=== PATIENT | female | born 1960 | race Caucasian/White ===

== ENCOUNTER → 2017-02-25 | Outpatient (CLI) | payer MEDICAID ==
[2017-02-25 09:15] LABS: Cholesterol 195 mg/dL (<200); HDL Cholesterol 79 mg/dL (40-60); Triglycerides 69 mg/dL (<150)
== END | disposition home or self-care (01) ==
LOC: LABWHC1 08:13
PROVIDERS: ATTEND Family Medicine
DX: E78.5 Hyperlipidemia, unspecified (principal)
CPT/HCPCS: 36415; 80061

== ENCOUNTER → 2018-01-19 | Outpatient (CLI) | payer MEDICAID ==
[2018-01-19 08:07] LABS: Cholesterol 246 mg/dL (<200); Glucose 95 mg/dL (74-99); HDL Cholesterol 71 mg/dL (40-60); LDL Cholesterol,Calculated 159 mg/dL (0-99); Triglycerides 78 mg/dL (<150)
== END | disposition home or self-care (01) ==
LOC: LABWHC1 06:45
PROVIDERS: ATTEND Family Medicine
DX: Z00.00 Encounter for general adult medical examination without abnormal findings (principal)
CPT/HCPCS: 36415; 80061; 82947

== ENCOUNTER → 2018-01-30 | Outpatient (CLI) | payer MEDICAID ==
--- NOTE | 2018-02-01 13:04 | MM ---
Reason for exam: screening (asymptomatic). Last mammogram was performed 1 year and 6 months ago. History: Patient is postmenopausal. Physical Findings: A clinical breast exam by your physician is recommended on an annual basis and results should be correlated with mammographic findings. MG 3D Screening Mammo W/Cad Bilateral CC and MLO view(s) were taken. Prior study comparison: August 02, 2016, bilateral MG 3d screening mammo w/cad. June 23, 2015, bilateral MG screening mammo w CAD. There are scattered fibroglandular densities. No significant changes when compared with prior studies. ASSESSMENT: Negative, BI-RAD 1 RECOMMENDATION: Routine screening mammogram of both breasts in 1 year.
== END | disposition home or self-care (01) ==
LOC: RADMAMWWP 14:06
PROVIDERS: ATTEND Family Medicine
DX: Z12.31 Encounter for screening mammogram for malignant neoplasm of breast (principal)
CPT/HCPCS: 77063; 77067

== ENCOUNTER → 2019-06-12 | Outpatient (CLI) | payer MEDICAID ==
--- NOTE | 2019-06-13 12:11 | MM ---
Reason for exam: screening (asymptomatic). Last mammogram was performed 1 year and 4 months ago. History: Patient is postmenopausal. Physical Findings: A clinical breast exam by your physician is recommended on an annual basis and results should be correlated with mammographic findings. MG 3D Screening Mammo W/Cad Bilateral CC and MLO view(s) were taken. Prior study comparison: January 30, 2018, bilateral MG 3d screening mammo w/cad. August 02, 2016, bilateral MG 3d screening mammo w/cad. There are scattered fibroglandular densities. There are benign appearing round calcifications bilaterally. There is no discrete abnormality. ASSESSMENT: Benign, BI-RAD 2 RECOMMENDATION: Routine screening mammogram of both breasts in 1 year.
== END | disposition home or self-care (01) ==
LOC: RADMAMWWP 13:59
PROVIDERS: ATTEND Family Medicine
DX: Z12.31 Encounter for screening mammogram for malignant neoplasm of breast (principal)
CPT/HCPCS: 77063; 77067

== ENCOUNTER → 2019-06-18 | Outpatient (CLI) | payer MEDICAID ==
--- NOTE | 2019-06-18 08:47 | US ---
EXAMINATION TYPE: US abdomen complete DATE OF EXAM: 06/18/2019 COMPARISON: NONE CLINICAL HISTORY: R10.31 Right lower quad pain. Intermittent symptoms; gallbladder removed EXAM MEASUREMENTS: Liver Length: 14.0 cm Gallbladder Wall: surgically removed CBD: 0.3 cm Spleen: 9.8 cm Right Kidney: 9.5 x6.3 x 4.3 cm Left Kidney: 10.3 x 5.3 x 4.9 cm Pancreas: wnl Liver: wnl Gallbladder: surgically removed Evidence for sonographic Rader's sign: no CBD: wnl Spleen: wnl Right Kidney: wnl Left Kidney: wnl Upper IVC: wnl Abd Aorta: size is wnl; ectatic appearance is noted upper mid aorta. The liver is homogenous. The intrahepatic portion of the IVC and proximal abdominal aorta are within normal limits. Common bile duct is unremarkable. The visualized portions of the pancreas are homog enous. The spleen is unremarkable. Kidneys are symmetric and free of hydronephrosis. No renal lesi ons are seen. IMPRESSION: Unremarkable abdominal ultrasound other than slight ectasia of the mid abdominal aorta (d oes not meet size criteria for aneurysm).
--- NOTE | 2019-06-18 08:49 | US ---
EXAMINATION TYPE: US pelvic complete DATE OF EXAM: 06/18/2019 COMPARISON: NONE CLINICAL HISTORY: R10.31 Right lower quad pain. Intermittent symptoms; ; post menopausal TECHNIQUE: Transabdominal sonographic images of the pelvis were acquired. Date of LMP: post menopause EXAM MEASUREMENTS: Uterus: 7.4x 4.4x 3.2 cm Endometrial Stripe: 0.4 cm Right Ovary: 2.0 x 1.6 x 1.4 cm Left Ovary: 1.5 x 1.7 x 1.0 cm 1. Uterus: Anteverted 2. Endometrium: thickness is wnl for postmenopause status 3. Right Ovary: wnl 4. Left Ovary: wnl Spectral, color and waveform Doppler imaging shows good arterial and venous flow within the ovaries ; there is no evidence for ovarian torsion. 5. Bilateral Adnexa: wnl 6. Posterior cul-de-sac: wnl IMPRESSION: Ovarian atrophy bilaterally. No cystic changes seen of either ovary. Endometrial thicknes s is within normal limits for a postmenopausal female. Overall unremarkable ultrasound.
== END | disposition home or self-care (01) ==
LOC: RADUSWWP 06:48
PROVIDERS: ATTEND Family Medicine
DX: I77.811 Abdominal aortic ectasia (principal); R10.31 Right lower quadrant pain; N83.312 Acquired atrophy of left ovary; N83.311 Acquired atrophy of right ovary; Z78.0 Asymptomatic menopausal state
CPT/HCPCS: 76700; 76856

== ENCOUNTER → 2020-03-02 | Outpatient (CLI) | payer MEDICAID ==
--- NOTE | 2020-03-02 11:45 | US ---
EXAMINATION TYPE: US axilla RT DATE OF EXAM: 03/02/2020 COMPARISON: NONE CLINICAL HISTORY: M79.629 Pain in unspecified upper arm. TECHNIQUE/FINDINGS: Targeted ultrasound was performed of the right axilla utilizing grayscale imaging . Patient feels specific area of palpable swelling. No abnormality seen at patients palpable or entire axilla. No solid or cystic mass. IMPRESSION: No solid or cystic masses seen in the right axilla. No sonographic correlate to the christiano ent's palpable abnormality. If there is a palpable breast abnormality diagnostic mammogram and ultras ound would be recommended.
== END | disposition home or self-care (01) ==
LOC: RADUSWWP 10:51
PROVIDERS: ATTEND Family Medicine
DX: M79.629 Pain in unspecified upper arm (principal)

== ENCOUNTER → 2020-09-09 | Outpatient (CLI) | payer MEDICAID ==
[2020-09-09 12:40] LABS: Chol/HDL Ratio 4.42; LDL Cholesterol,Calculated 190.6 mg/dL (0.0-131.0); VLDL Calculation 21.4 mg/dL (5.00-40.00)
== END ==
LOC: LABWHC1 07:22
PROVIDERS: ATTEND Family Medicine
DX: Z00.00 Encounter for general adult medical examination without abnormal findings (principal)
CPT/HCPCS: 36415; 80061; 82947

== ENCOUNTER 2020-09-30 09:13 | Day surgery (SDC) | payer MEDICAID ==
[2020-09-25 14:26] VITALS: BMI 29.2
[~2020-09-30 09:13] MED LIST: LACTATED RINGERS 1,000 ML IV SCH
[2020-09-30] MEDS ORDERED: LIDOCAINE 1% (10MG/ML) FOR IV START INTRADERMA ONE (09:40)
[2020-09-30 09:51] VITALS: TEMP 97.6
[2020-09-30] MEDS ORDERED: PROPOFOL 10 MG/ML 20 ML VIAL IV ONE (10:34)
[2020-09-30] MEDS ORDERED: LIDOCAINE 1% INJ 10MG/ML (20 ML MDV) ONE (10:34)
--- NOTE | 2020-09-30 10:45 | P.PCN ---
Date of Procedure: 09/30/20 Procedure(s) Performed: BRIEF HISTORY: Patient is a 59-year-old, pleasant, male scheduled for an upper endoscopy as a part of evaluation of long-standing history of GERD. She has been on Nexium 20 mg daily and has the symptoms to 3 times a week. She is scheduled for an upper endoscopy to rule out complicated reflux disease. PROCEDURE PERFORMED: Esophagogastroduodenoscopy with biopsy. PREOPERATIVE DIAGNOSIS: Long-standing history of GERD. IV sedation per anesthesia. PROCEDURE: After informed consent was obtained, the patient was brought into the endoscopy unit. IV sedation was administered by Anesthesia under continuous monitoring. Initially the Olympus GIF-140 video endoscope was inserted into the mouth. Esophagus intubated without any difficulty. It was gradually advanced into the stomach and duodenum and carefully examined. The bulb and the second part of the duodenum appeared normal. The scope at this time was withdrawn to the stomach, adequately insufflated with air, and upon careful examination, mucosa of the antrum, patchy areas of erythema in the prepyloric area which was biopsied. The body, cardia and the fundus appeared normal. The scope was then withdrawn into the esophagus. The GE junction was located at 39 cm from the incisors. The esophagus appeared normal. There were no erosions or ulcerations seen and the patient tolerated the procedure well. IMPRESSION: 1. Mild antral gastritis. 2. Normal-appearing esophagus with no evidence of esophagitis or Ge's esophagus. RECOMMENDATIONS: The findings of this examination were discussed with the patient as well as a family. She will follow with the biopsy results. She was advised to continue with Nexium 20 mg daily and continue to follow antireflux measures..
[2020-09-30 10:53] VITALS: RESP 16
[2020-09-30 11:02] VITALS: BP 109/72; PULSE 62
== END 2020-09-30 11:36 | disposition home or self-care (01) ==
LOC: ORWHC2ENDO 09:13
PROVIDERS: ATTEND Internal Medicine Gastroenterology
DX: K29.50 Unspecified chronic gastritis without bleeding (principal); K21.9 Gastro-esophageal reflux disease without esophagitis; I10 Essential (primary) hypertension; Z79.899 Other long term (current) drug therapy
CPT/HCPCS: 88305; 43239; J2001; J2704

== ENCOUNTER → 2020-12-09 | Outpatient (CLI) | payer MEDICAID ==
--- NOTE | 2020-12-14 09:35 | MM ---
Reason for exam: screening (asymptomatic). Last mammogram was performed 1 year and 6 months ago. History: Patient is postmenopausal. Physical Findings: A clinical breast exam by your physician is recommended on an annual basis and results should be correlated with mammographic findings. MG 3D Screening Mammo W/Cad Bilateral CC and MLO view(s) were taken. Prior study comparison: June 12, 2019, bilateral MG 3d screening mammo w/cad. January 30, 2018, bilateral MG 3d screening mammo w/cad. The breast tissue is heterogeneously dense. This may lower the sensitivity of mammography. There is no discrete abnormality. ASSESSMENT: Negative, BI-RAD 1 RECOMMENDATION: Routine screening mammogram of both breasts in 1 year.
== END | disposition home or self-care (01) ==
LOC: RADMAMWWP 13:59
PROVIDERS: ATTEND Family Medicine
DX: Z12.31 Encounter for screening mammogram for malignant neoplasm of breast (principal)
CPT/HCPCS: 77063; 77067

== ENCOUNTER → 2021-09-22 | Outpatient (CLI) | payer MEDICAID ==
[2021-09-22 17:45] LABS: Chol/HDL Ratio 4.66 Ratio; Glucose 99 mg/dL (70-110); LDL Cholesterol,Calculated 212.8 mg/dL (0.0-131.0)
== END | disposition home or self-care (01) ==
LOC: LABWHC1 08:36
PROVIDERS: ATTEND Family Medicine
DX: Z00.00 Encounter for general adult medical examination without abnormal findings (principal)
CPT/HCPCS: 36415; 80061; 82947

== ENCOUNTER → 2022-03-01 | Outpatient (CLI) | payer MEDICAID ==
--- NOTE | 2022-03-02 12:27 | MM ---
Reason for exam: screening (asymptomatic). Last mammogram was performed 1 year and 3 months ago. History: Patient is postmenopausal. Physical Findings: A clinical breast exam by your physician is recommended on an annual basis and results should be correlated with mammographic findings. MG 3D Screening Mammo W/Cad Bilateral CC and MLO view(s) were taken. Prior study comparison: December 09, 2020, bilateral MG 3d screening mammo w/cad. June 12, 2019, bilateral MG 3d screening mammo w/cad. No significant changes when compared with prior studies. ASSESSMENT: Benign, BI-RAD 2 RECOMMENDATION: Routine screening mammogram of both breasts in 1 year.
== END | disposition home or self-care (01) ==
LOC: RADMAMWWP 07:55
PROVIDERS: ATTEND Family Medicine
DX: Z12.31 Encounter for screening mammogram for malignant neoplasm of breast (principal); Z78.0 Asymptomatic menopausal state
CPT/HCPCS: 77063; 77067

== ENCOUNTER → 2022-11-17 | Outpatient (CLI) | payer MEDICAID ==
--- NOTE | 2022-11-17 10:54 | CA ---
Exercise Stress Test Report Name: Lisa Kline Exam Date: 11/17/2022 09:46 Exam Location: [facility] Stress Ht (in): 65 Wt (lb): 175 BSA: 1.87 Ordering Phys: Chirag Ness MD Referring Phys: MARISSA,, Technologist: HOPE,, Age: 61 Gender: F : 1960 Procedure CPT: Indications: R42 dizziness and giddiness ICD-10 Codes: Patient History: Dizzyness Medications: Meds past 24 hrs: Pretest Chest Pain: STRESS TEST [place] Protocol Exercise Duration (min:sec): 09:[address] Depressions (mm): Angina Score: Parr Score: Resting HR (bpm): 77 Peak HR (bpm): 142 Resting BP (mmHg): 123 / 89 Peak BP (mmHg): 172 / 92 MPHR: 159 Target HR: 135 % MPHR: 89 METS: 10.3 Total Dose: Peak Dose: Atropine: Double Product: 62705 BP Response: Stress Termination: TARGET HR REACHED/MAX EXERTION Stress Symptoms: NO SYMPTOMS Stress Summary: ECG ANALYSIS Resting ECG: Stress ECG: CONCLUSIONS Baseline EKG revealed normal sinus rhythm with minor nonspecific ST abnormality. Patient walked on a standard Juan Pablo protocol for 9 minutes and achieved a maximal heart rate of 140 bpm which is more than 85% of predicted maximal. There was no angina. There was no significant arrhythmia. At peak exercise there were minor nonspecific ST-T changes noted also slightly more prominent but given the resting changes this is considered is an inconclusive stress test with fair x-rays capacity and no anginal symptoms. Dr. Rehan Abdalla MD (Electronically Signed) Final Date: 17 November 2022 10:53
--- NOTE | 2022-11-28 21:47 | HM ---
HOLTER MONITOR REPORT STUDY PERFORMED: A 24-hour Holter. INDICATION: Atrial flutter. FINDINGS: This 24-hour Holter reveals sinus rhythm with occasional PVCs and PACs. There was no evidence of high-grade AV block and there were no episodes of atrial fibrillation or flutter. CONCLUSION: This 24-hour Holter revealed sinus rhythm with rare PVCs and PACs with episodes of sinus bradycardia and sinus tachycardia with an average heart rate of 75 beats per minute. ODL / IJN: [id number] /
== END | disposition home or self-care (01) ==
LOC: RADNMMAIN 08:38
PROVIDERS: ATTEND Internal Medicine Cardiovascular Disease
DX: R00.1 Bradycardia, unspecified (principal); R00.0 Tachycardia, unspecified; R42 Dizziness and giddiness; R94.31 Abnormal electrocardiogram [ECG] [EKG]
CPT/HCPCS: 93017; 93225; 93226

== ENCOUNTER → 2023-04-24 | Outpatient (CLI) | payer MEDICAID ==
[2023-04-24 11:20] LABS: Chol/HDL Ratio 3.18 Ratio
== END | disposition home or self-care (01) ==
LOC: LABWHC1 07:06
PROVIDERS: ATTEND Family Medicine
DX: E78.2 Mixed hyperlipidemia (principal)
CPT/HCPCS: 36415; 80061

== ENCOUNTER → 2023-12-11 | Outpatient (CLI) | payer MEDICAID ==
[2023-12-11 15:40] LABS: Blood Urea Nitrogen 19.8 mg/dL (9.0-27.0); Calcium 10.1 mg/dL (8.7-10.3); Carbon Dioxide 27.4 mmol/L (21.6-31.8); Chloride 100 mmol/L (96-109); Glucose 97 mg/dL (70-110); Potassium 3.9 mmol/L (3.5-5.5); Sodium 139 mmol/L (135-145)
== END | disposition home or self-care (01) ==
LOC: LABWHC1 10:01
PROVIDERS: ATTEND Family Medicine
DX: N18.9 Chronic kidney disease, unspecified (principal)
CPT/HCPCS: 36415; 80048

== ENCOUNTER → 2024-02-09 | Outpatient (CLI) | payer MEDICAID ==
[2024-02-09 15:54] LABS: Chol/HDL Ratio 2.95 Ratio; LDL Cholesterol,Calculated 113.9 mg/dL (0.0-131.0)
== END | disposition home or self-care (01) ==
LOC: LABWHC1 07:01
PROVIDERS: ATTEND Family Medicine
DX: Z00.00 Encounter for general adult medical examination without abnormal findings (principal)
CPT/HCPCS: 36415; 80061

== ENCOUNTER → 2024-02-20 | Outpatient (CLI) | payer MEDICAID ==
--- NOTE | 2024-02-22 12:46 | MM ---
Reason for Exam: Screening (asymptomatic). Last mammogram was performed 2 year(s) and 0 month(s) ago. Patient History: Menarche at age 14. First Full-Term at age 29. Postmenopausal. Risk Values: Yina 5 year model risk: 1.6%. NCI Lifetime model risk: 6.8%. Prior Study Comparison: 06/12/2019 Bilateral Screening Mammogram, [facility]. 12/09/2020 Bilateral Screening Mammogram, [facility]. 03/01/2022 Bilateral Screening Mammogram, [facility]. Tissue Density: There are scattered areas of fibroglandular density. Findings: Analyzed By CAD. Right breast: There is no suspicious group of microcalcifications or new suspicious mass. Left breast: There is no suspicious group of microcalcifications or new suspicious mass. Overall Assessment: Negative, BI-RAD 1 Management: Screening Mammogram of both breasts in [address] [facility] will attempt to contact patient to return for supplemental views and ultrasound if indicated. Patient should continue monthly self-breast exams. A clinical breast exam by your physician is recommended on an annual basis. This exam should not preclude additional follow-up of suspicious palpable abnormalities. Note on Yina scores and lifetime risk: 1. A Yina score greater than 3% is considered moderate risk. If this is the case, consider specialist referral to assess eligibility for a risk reducing agent. 2. If overall lifetime risk for the development of breast cancer is 20% or higher, the patient may qualify for future screening with alternating mammogram and breast MRI. Electronically signed and approved by: Sean Raman DO
== END | disposition home or self-care (01) ==
LOC: RADMAMWWP 14:26
PROVIDERS: ATTEND Family Medicine
DX: Z12.31 Encounter for screening mammogram for malignant neoplasm of breast (principal); Z78.0 Asymptomatic menopausal state
CPT/HCPCS: 77063; 77067

== ENCOUNTER → 2025-05-07 | Outpatient (CLI) | payer MEDICAID ==
[2025-05-07 15:17] LABS: Basophils # (A) 0.03 X 10*3/uL (0.00-0.10); Basophils % (A) 0.5 %; Eosinophils # (A) 0.19 X 10*3/uL (0.04-0.35); Eosinophils % (A) 3.5 %; HCT 38.7 % (37.2-46.3); HGB 12.3 g/dL (12.0-15.0); Immature Grans, Automated 0.20 %; Lymphocytes # (A) 2.28 X 10*3/uL (0.90-5.00); Lymphocytes % (A) 41.6 %; MCH 30.6 pg (27.0-32.0); MCHC 31.8 g/dL (32.0-37.0); MCV 96.3 FL (80.0-97.0); Monocytes # (A) 0.42 X 10*3/uL (0.20-1.00); Monocytes % (A) 7.7 %; NRBC Per 100 WBC 0 X 10*3/uL (0.00-0.01); Neutrophils # (A) 2.55 X 10*3/uL (1.80-7.70); Neutrophils % (A) 46.5 %; Platelet Count 294 X 10*3/uL (140-440); RBC 4.02 X 10*6/uL (4.10-5.20); RDW 12.9 % (11.5-14.5); WBC 5.48 X 10*3/uL (4.50-10.00)
[2025-05-07 15:29] LABS: ALT 13 U/L (8-44); AST 24 U/L (13-35); Albumin 4.2 g/dL (3.8-4.9); Albumin/Globulin Ratio 1.91 Ratio (1.60-3.17); Alkaline Phosphatase 56 U/L (41-126); Anion Gap 11.70 mmol/L (4.00-12.00); BUN/Creat Ratio 17.40 Ratio (12.00-20.00); Blood Urea Nitrogen 17.4 mg/dL (9.0-27.0); Calcium 9.1 mg/dL (8.7-10.3); Carbon Dioxide 29.3 mmol/L (21.6-31.8); Chloride 101 mmol/L (96-109); Cholesterol 171.00 mg/dL (0.00-200.00); Globulin 2.2 g/dL (1.6-3.3); Glucose 91 mg/dL (70-110); HDL Cholesterol 71.90 mg/dL (40.00-60.00); LDL Cholesterol,Calculated 83.6 mg/dL (0.0-131.0); Potassium 3.2 mmol/L (3.5-5.5); Sodium 142 mmol/L (135-145); Total Protein 6.4 g/dL (6.2-8.2); Triglycerides 77.60 mg/dL (0.00-149.00); VLDL Calculation 15.52 mg/dL (5.00-40.00)
== END | disposition home or self-care (01) ==
LOC: LABWHC1 07:59
PROVIDERS: ATTEND Nurse Practitioner Family
DX: E78.2 Mixed hyperlipidemia (principal); I10 Essential (primary) hypertension; N18.9 Chronic kidney disease, unspecified
CPT/HCPCS: 36415; 80053; 80061; 85025

== ENCOUNTER → 2025-05-15 | Outpatient (CLI) | payer MEDICAID ==
--- NOTE | 2025-05-15 08:35 | MM ---
Reason for Exam: Screening (asymptomatic). Last mammogram was performed 1 year(s) and 3 month(s) ago. Patient History: Menarche at age 14. First Full-Term at age 29. Postmenopausal. Risk Values: Yina 5 year model risk: 1.6%. NCI Lifetime model risk: 6.6%. Prior Study Comparison: 12/09/2020 Bilateral Screening Mammogram, [facility]. 03/01/2022 Bilateral Screening Mammogram, [facility]. 02/20/2024 Bilateral MG 3D screening mammo w/cad, [facility]. Tissue Density: There are scattered areas of fibroglandular density. Findings: Analyzed By CAD. There is no suspicious group of microcalcifications or new suspicious mass in either breast. Overall Assessment: Negative, BI-RAD 1 Management: Screening Mammogram of both breasts in 1 year. . Patient should continue monthly self-breast exams. A clinical breast exam by your physician is recommended on an annual basis. This exam should not preclude additional follow-up of suspicious palpable abnormalities. Note on Yina scores and lifetime risk: 1. A Yina score greater than 3% is considered moderate risk. If this is the case, consider specialist referral to assess eligibility for a risk reducing agent. 2. If overall lifetime risk for the development of breast cancer is 20% or higher, the patient may qualify for future screening with alternating mammogram and breast MRI. [facility], , 05/15/2025 7:33 AM. Electronically signed and approved by: Eugene Caraballo M.D.
== END | disposition home or self-care (01) ==
LOC: RADMAMWWP 06:57
PROVIDERS: ATTEND Family Medicine
DX: Z12.31 Encounter for screening mammogram for malignant neoplasm of breast (principal); R92.323 Mammographic fibroglandular density, bilateral breasts; Z78.0 Asymptomatic menopausal state
CPT/HCPCS: 77063; 77067